=== PATIENT | male | born 1955 | race African-American/Black ===

== ENCOUNTER → 2017-12-09 | Outpatient (CLI) | payer OTHER ==
--- NOTE | 2017-12-09 14:18 | Diagnostic Imaging Report ---
PROCEDURE:X-RAY LEFT FOOT, COMPLETE COMPARISON:None. INDICATIONS:left foot pain FINDINGS: Normal mineralization. No acute displaced fracture or dislocation. No lytic or blastic lesion. Mild cystic degenerative changes in the first toe interphalangeal joint. Mild degenerative changes in the first toe metatarsophalangeal joint with mild hallux valgus deformity. Large posterior calcaneal enthesophyte. Os peroneum. Soft tissues are unremarkable. CONCLUSION: No acute abnormalities. Mild degenerative changes in the first toe metatarsophalangeal joint, with mild hallux valgus deformity Corby Wheeler M.D. Dictated by: Corby Wheeler M.D. on 12/09/2017 at 14:19 Electronically approved by: Corby Wheeler M.D. on 12/09/2017 at 14:19
== END ==
LOC: RAD 12:11
PROVIDERS: ATTEND Internal Medicine
DX: M79.672 Pain in left foot (principal)